=== PATIENT | male | born 1950 | race American Indian/Alaskan Native ===

== ENCOUNTER 2020-06-02 16:55 | Emergency (ER) | payer BC, OTHER ==
[~2020-06-02] VITALS: Ht 175.3 cm; Wt 77.1 kg
[~2020-06-02 16:55] MED LIST: CYCLOBENZAPRINE10 MG PO; GLUCOPHAGE500 MG; NAPROSYN500 MG PO
[2020-06-02] MEDS ORDERED: DIGOXIN250 MCG PO (16:57)
[2020-06-02] MEDS ORDERED: DILTIAZEM 24HR180 M1 PO (16:58)
[2020-06-02] MEDS ORDERED: FLUTICASONE PRO16 GM NAS (16:58)
[2020-06-02] MEDS ORDERED: LISINOPRIL40 MG PO (16:59)
[2020-06-02] MEDS ORDERED: LO-DOSE ASPIRIN81 MG PO (16:59)
[2020-06-02] MEDS ORDERED: WELCHOL3.75 GM PO (16:59)
[2020-06-02] MEDS ORDERED: GLIPIZIDE XL5 MG PO (16:59)
[2020-06-02] MEDS ORDERED: XARELTO15 MG PO (17:00)
--- NOTE | 2020-06-03 14:19 | EKG ---
[facility] [address] [place], [place] [address] Signed Atrial fibrillation with premature ventricular or aberrantly conducted complexes Inferior-posterior infarct , age undetermined ST \T\ T wave abnormality, consider lateral ischemia Abnormal ECG No previous ECGs available Confirmed by JORGE LEWIS DO ([id number]) on 06/03/2020 2:18:49 PM Electronically Signed By: JORGE LEWIS DO 06/03/20 1419 PATIENT NAME: JUDY KAY Electrocardiogram DATE OF : 48 PHYSICIAN: JORGE LEWIS DO REPORT #: [id number] REPORT IS CONFIDENTIAL AND NOT TO BE RELEASED WITHOUT AUTHORIZATION
== END 2020-06-03 00:50 | disposition short-term general hospital (02) ==
LOC: ED 16:55
DX: R04.0 Epistaxis (principal); D64.9 Anemia, unspecified; N17.9 Acute kidney failure, unspecified; R00.1 Bradycardia, unspecified; T46.0X5A Adverse effect of cardiac-stimulant glycosides and drugs of similar action, initial encounter; M10.9 Gout, unspecified; E11.9 Type 2 diabetes mellitus without complications; Z87.891 Personal history of nicotine dependence; Z88.8 Allergy status to other drugs, medicaments and biological substances; Z79.899 Other long term (current) drug therapy; Z79.82 Long term (current) use of aspirin; Z20.822 Contact with and (suspected) exposure to COVID-19
CPT/HCPCS: 36430; 51702; 51798; 71045; 80048; 80053; 80162; 81001; 82550; 84484; 85025; 85610; 85730; 86850; 86900; 86901; 86920; 93005; 93010; 99285-25; C9803; J1162; J2060; J7030; J7050; J7121; P9016; U0003

== ENCOUNTER 2020-07-27 14:58 | Emergency (ER) | payer MEDICARE, BC, OTHER ==
[~2020-07-27] VITALS: Ht 175.3 cm; Wt 77.1 kg
[~2020-07-27 14:58] MED LIST changes: +DIGOXIN250 MCG PO; +DILTIAZEM 24HR180 M1 PO; +FLUTICASONE PRO16 GM NAS; +GLIPIZIDE XL5 MG PO; +LISINOPRIL40 MG PO; +LO-DOSE ASPIRIN81 MG PO; +WELCHOL3.75 GM PO; +XARELTO15 MG PO
[2020-07-27] MEDS ORDERED: AMLODIPINE BESYL5 MG PO (15:14)
[2020-07-27] MEDS ORDERED: FUROSEMIDE20 MG PO (15:14)
[2020-07-27] MEDS ORDERED: ROSUVASTATIN CA10 MG PO (15:28)
[2020-07-27] MEDS ORDERED: VITAMIN D325 MCG PO (15:29)
[2020-07-27] MEDS ORDERED: OMEPRAZOLE20 MG PO (15:30)
[2020-07-27] MEDS ORDERED: METOPROLOL SUCC25 MG PO (15:31)
[2020-07-27] MEDS ORDERED: WELCHOL3.75 GM PO (15:35)
--- NOTE | 2020-07-27 21:00 | EKG ---
[facility] [address] [facility] [place] [address] Signed Atrial fibrillation with rapid ventricular response Nonspecific T wave abnormality Abnormal ECG When compared with ECG of 02-JUN-2020 16:58, Vent. rate has increased BY [address] no longer depressed in Inferior leads T wave inversion no longer evident in Inferior leads T wave inversion no longer evident in Anterolateral leads Confirmed by DINO CEDEÑO MD ([id number]) on 07/27/2020 9:00:18 PM Electronically Signed By: DINO CEDEÑO MD 07/27/202099 PATIENT NAME: JUDY KAY Electrocardiogram DATE OF : 48 PHYSICIAN: DINO CEDEÑO MD REPORT #: [id number] REPORT IS CONFIDENTIAL AND NOT TO BE RELEASED WITHOUT AUTHORIZATION
== END 2020-07-27 20:35 | disposition home or self-care (01) ==
LOC: ED 14:58
DX: I48.91 Unspecified atrial fibrillation (principal); M10.9 Gout, unspecified; E11.9 Type 2 diabetes mellitus without complications; I10 Essential (primary) hypertension; Z87.891 Personal history of nicotine dependence; Z88.8 Allergy status to other drugs, medicaments and biological substances; Z79.899 Other long term (current) drug therapy; Z79.82 Long term (current) use of aspirin
CPT/HCPCS: 36415; 71045; 80053; 80162; 83735; 84484; 85025; 93005; 93010; 96374; 99285-25

== ENCOUNTER 2020-10-26 09:19 | Emergency (ER) | payer MEDICARE, BC, OTHER ==
[~2020-10-26] VITALS: Ht 175.3 cm; Wt 84.8 kg
[~2020-10-26 09:19] MED LIST changes: +AMLODIPINE BESYL5 MG PO; +FUROSEMIDE20 MG PO; +METOPROLOL SUCC25 MG PO; +OMEPRAZOLE20 MG PO; +ROSUVASTATIN CA10 MG PO; +VITAMIN D325 MCG PO
== END 2020-10-26 10:55 | disposition home or self-care (01) ==
LOC: ED 09:19
DX: M25.512 Pain in left shoulder (principal); I10 Essential (primary) hypertension; M10.9 Gout, unspecified; E11.9 Type 2 diabetes mellitus without complications; I48.91 Unspecified atrial fibrillation; Z87.891 Personal history of nicotine dependence; Z88.8 Allergy status to other drugs, medicaments and biological substances; Z79.899 Other long term (current) drug therapy; Z79.84 Long term (current) use of oral hypoglycemic drugs; Z79.82 Long term (current) use of aspirin; Z79.01 Long term (current) use of anticoagulants
CPT/HCPCS: 73030; 99283-25